=== PATIENT | female | born 1940 | race Caucasian/White ===

== ENCOUNTER → 2017-10-20 | Outpatient (CLI) | END | disposition home or self-care (01) ==

== ENCOUNTER → 2017-11-24 | Outpatient (CLI) | END | disposition home or self-care (01) ==

== ENCOUNTER 2017-12-04 05:48 | Observation (INO) | END 2017-12-06 13:55 | disposition home health service (06) ==

== ENCOUNTER → 2017-12-15 | Outpatient (CLI) | END | disposition home or self-care (01) ==

== ENCOUNTER → 2018-01-12 | Outpatient (CLI) | END | disposition home or self-care (01) ==

== ENCOUNTER → 2018-03-02 | Outpatient (CLI) | END | disposition home or self-care (01) ==

== ENCOUNTER → 2018-05-18 | Outpatient (CLI) | END | disposition home or self-care (01) ==